=== PATIENT | female | born 1990 | race African-American/Black ===

== ENCOUNTER 2016-12-21 17:10 | Inpatient (IN) | payer MEDICAID ==
[2016-12-21 17:52] LABS: APPEARANCE,URINE SLIGHTLY-CLOUDY; BILIRUBIN,URINE NEGATIVE (NEGATIVE); GLUCOSE, URINE NEGATIVE (NEGATIVE); KETONES,URINE NEGATIVE (NEGATIVE); LEUKOCYTE ESTERASE,URINE MODERATE (NEGATIVE); NITRITE,URINE POSITIVE (NEGATIVE); PROTEIN,URINE NEGATIVE (NEGATIVE); URINE SPECIFIC GRAVITY 1.009; UROBILINOGEN,URINE NEGATIVE mg/dL (<2.0)
[2016-12-21 18:08] LABS: URINE BARBITURATES SCREEN NEGATIVE; URINE METHADONE SCREEN NEGATIVE; URINE OPIATES LOW NEGATIVE; URINE PHENCYCLIDINE SCREEN NEGATIVE
[2016-12-21] MEDS ORDERED: OXYTOCIN 10 UNIT/ML VIAL ONE (19:32)
[2016-12-21] MEDS ORDERED: KETOROLAC TROMETHAMINE INJ/PF 30 MG/1 ML SDV ONE (19:32)
[2016-12-21] MEDS ORDERED: EPHEDRINE SULFATE INJ 50 MG/1 ML AMPULE ONE (19:33)
[2016-12-21] MEDS ORDERED: MIDAZOLAM 2 MG/2 ML INJ ONE (19:33)
[2016-12-21] MEDS ORDERED: ONDANSETRON HCL INJ/PF 4 MG/2 ML SDV ONE (19:33)
[2016-12-21] MEDS ORDERED: OXYTOCIN/NORMAL SALINE 20 UNIT/1,000 ML RTUINJ ONE (19:33)
[2016-12-21] MEDS ORDERED: ACETAMINOPHEN 100 ML IV ONE (19:33)
[2016-12-21] MEDS ORDERED: FENTANYL CITRATE INJ/PF 100 MCG/2 ML AMPUL ONE (19:33)
[2016-12-21] MEDS ORDERED: FENTANYL CITRATE INJ/PF 250 MCG/5 ML AMPULE ONE (19:33)
[2016-12-21] MEDS ORDERED: CITRIC ACID/SODIUM CITRATE ORAL SOLN 15 ML UDCUP PO ONE (19:35)
[2016-12-21] MEDS ORDERED: CEFAZOLIN 2 GM/D5W RTU 2 GM/50 ML RTUPB IV ONE (19:36)
[2016-12-21] MEDS ORDERED: CITRIC ACID/SODIUM CITRATE ORAL SOLN 15 ML UDCUP ONE (19:36)
[2016-12-21 19:44] LABS: ABSOLUTE EOSINOPHILS # (AUTO) 0.1 10^3/uL (0.0-0.6); ABSOLUTE LYMPHOCYTES (AUTO) 1.4 10^3/uL (0.5-4.7); ABSOLUTE MONOCYTES (AUTO) 0.8 10^3/uL (0.1-1.4); ABSOLUTE NEUT (AUTO) 8.2 10^3/uL (1.7-8.2); BASOPHILS % (AUTO) 0.3 % (0-2); EOSINOPHILS % (AUTO) 0.6 % (0-6); HEMATOCRIT 35.3 % (36.0-47.0); HEMOGLOBIN 11.8 g/dL (12.0-15.5); HGB HCT DIFFERENCE 0.1; LYMPHOCYTES % (AUTO) 13.2 % (13-45); MEAN CORPUSCULAR HEMOGLOBIN 29.8 pg (27.0-33.4); MEAN CORPUSCULAR HGB CONC 33.5 g/dL (32.0-36.0); MEAN CORPUSCULAR VOLUME 89 fl (80-97); MONOCYTES % (AUTO) 7.3 % (3-13); RED BLOOD COUNT 3.96 10^6/uL (3.72-5.28); RED CELL DISTRIBUTION WIDTH 12.5 % (11.5-14.0); SEGMENTED NEUTROPHILS % (AUTO) 78.6 % (42-78); WHITE BLOOD COUNT 10.4 10^3/uL (4.0-10.5)
[2016-12-21] MEDS ORDERED: CEFAZOLIN 2 GM/D5W RTU 50 ML IV SCH (19:45)
[2016-12-21] MEDS ORDERED: HYDROMORPHONE HCL INJ/PF 2 MG/ML AMPULE IV PRN (20:00)
[2016-12-21] MEDS ORDERED: ACETAMINOPHEN 100 ML IV PRN (20:00)
[2016-12-21] MEDS ORDERED: SIMETHICONE 80 MG TAB.CHEW PO PRN (20:00)
[2016-12-21] MEDS ORDERED: OXYCODONE-ACETAMINOPHEN 5-325 MG TABLET PO PRN (20:00)
[2016-12-21] MEDS ORDERED: RINGERS SOLUTION,LACTATED 1,000 ML IV PRN (20:00)
[2016-12-21] MEDS ORDERED: OXYTOCIN/NORMAL SALINE 1,000 ML IV PRN (20:00)
[2016-12-21] MEDS ORDERED: PROMETHAZINE HCL INJ 25 MG/1 ML VIAL IV PRN (20:00)
[2016-12-21] MEDS ORDERED: ACETAMINOPHEN 325 MG TABLET PO PRN (20:00)
[2016-12-21] MEDS ORDERED: MEASLES,MUMPS&RUBELLA VACC/PF 0.5 ML VIAL SUBCUT PRN (20:00)
[2016-12-21] MEDS ORDERED: DIPH/PERTUSS(ACELL)/TETANUS VAC/PF 0.5 ML SYR (>=10YO) IM PRN (20:00)
--- NOTE | 2016-12-21 21:33 | OPERATIVE REPORT E ---
Operative Report NAME: MAXIMUS MOMIN : 1990 AGE: 26Y DATE OF SURGERY: 12/21/2016 ROOM: LR200 PREOPERATIVE DIAGNOSIS: POSTOPERATIVE DIAGNOSIS: OPERATION: SURGEON: NELL KAN M.D. ANESTHESIA: TISSUE REMOVED OR ALTERED: PROCEDURE: Dr. Arcos, the crystal calibrator, while in the middle of doing a section, called me because the tip of the dome of the bladder appears to be very adherent to the midline. The patient had a previous section in the past. The bladder appears to be in the way to deliver the baby from the uterus. Because of this, the dome of the bladder was dissected further as far as possible towards the superior part to subsequently serially clamp, cut and suture ligate it with 0-Vicryl. About a 2 cm length of the tip of the bladder was dissected down. Four Radha clamps were used and the proximal bladder side of the clamp was then suture ligated with 0-Vicryl. This allowed to pull down the bladder out of the way of the path the baby. Following this, Dr. Arcos then proceeded to make an incision through the uterus and deliver the baby. At this point, I left the procedure and early childhood assistant nurse took over. The plan is to leave the Mckeon catheter for about 7-10 days. A cystogram may need to be taken just prior to the patient's discharge from the hospital to make sure there is no leak. DICTATING PHYSICIAN: NELL KAN M.D. [id number] PHY#: [id number] ID: [id number] JOB#: [id number] ACCT: [id number] cc:NELL KAN M.D. >
--- NOTE | 2016-12-21 22:28 | Operative Report ---
Operative Report DATE OF SURGERY: 12/21/16 PREOPERATIVE DIAGNOSIS: Repeat in labor POSTOPERATIVE DIAGNOSIS: Same with the addition of very dense pelvic adhesions OPERATION: Repeat with a vertical incision on the uterus in the contractile portion of the myometrium SURGEON: AIDA DUMONT - Dr. Obrien ANESTHESIA: Spinal TISSUE REMOVED OR ALTERED: Placenta COMPLICATIONS: None ESTIMATED BLOOD LOSS: 500 cc INTRAOPERATIVE FINDINGS: Viable female weight 5 lbs. 14 oz. crying at delivery. Also the uterus was adhesed to the back of the rectus muscles. There was a large scar which formed a shelf at the previous uterine incision. The bladder appeared to be adhesed up over the previous uterine incision. PROCEDURE: Patient was taken to the OR and placed in the supine position after her spinal. Her abdomen was prepared and draped in sterile fashion her bladder was drained with a Mckeon catheter. A low transverse incision was made excising her old scar. The incision was carried down the level of the fascia which was nicked in the midline. Fascial incision was extended bilaterally using curved Luque scissors. I next attempted to separate the fascia was off the rectus muscles however there was very dense scar in this region. In order to get room to deliver the baby I performed a Maylard incision the rectus muscles bilaterally. Peritoneum was entered with fingertip superior to the bladder. The uterus was densely adhesed to the rectus muscles. The bladder appeared to be adherent over the previous uterine scar. And the uterine scar formed thick shelf giving a very odd appearance to the lower uterine segment. There was also very little room laterally. I asked the general surgeon Dr. Camara to assist me with exposure. He was able to take the bladder off the lower uterine segment using sharp dissection. Several of the fibers he would clamp and tie off with Vicryl suture. Not appear that we entered the bladder. Dr. Camara did ask that we leave bladder drainage for 10 days just as a precaution. I then made the uterine incision above the area of adherent bladder. The uterine incision was extended superiorly and inferiorly because there was no room laterally. This incision was through the contractile portion of the myometrium. The baby's head was then delivered with some fundal pressure and the baby was delivered completely. The cord was doubly clamped and cut and the was passed off to the title vehicle service attendant. Next while retracting the bladder downward the uterine incision was closed with interrupted sutures of 0 chromic. A second layer of 0 chromic was used to imbricate the first. Interceed was placed over the incision after the closure was completed. Stasis was quite good. There is no access to the upper abdomen to view the tubes and ovaries. Next I began closing the Maylard incision. The peritoneum beneath the rectus muscle was brought together bilaterally with a running 2-0 chromic suture. The rectus muscles were inspected for bleeding and hemostasis was assured. The fascia above the rectus muscle was then closed with a running layer of 0 Vicryl in 2 segments. The wound was then irrigated and suctioned free of fluid. The subcu layer was brought together with a 2-0 plain gut stitch and the skin was closed with a subcuticular 4-0 undyed Vicryl stitch. Wound was dressed and the patient was taken to the PACU in stable condition.
--- NOTE | 2016-12-22 00:05 | Admission Physical ---
Datetime Report Generated by CPN: 12/22/2016 00:05 CURRENT ADMISSION Chief Complaint: Uterine Contractions Indication for Induction: Not Applicable Admit Plan: Admit to Unit; Initiate Section Protocol ALLERGIES Medication Allergies: Yes Medication Allergies: Penicillins (10/26/2014) Latex: No Latex Allergies Food Allergies: no Environmental Allergies: no OBSTETRICAL HISTORY EDC: 12/27/2016 00:00 : 3 Para: 2 Term: 1 : 1 SAB: 0 IAB: 0 Ectopic: 0 Livin Cesareans: 1 VBACs: 0 Multiple Births: 0 Gestational Diabetes: No Rh Sensitization: No Incompetent Cervix: No AMRIT: No Infertility: No ART Treatment: No Uterine Anomaly: No IUGR: Unknown Hx Previous C/S: Yes Macrosomia: No Hx Loss/Stillborn: No PIH: No Hx : No Placenta Previa/Abruption: No Depression/PP Depression: No PTL/PROM: Yes Post Hemorrhage: No Current Procedures: Ultrasound SEE RECORDS Alcohol: No Marijuana : Yes Marijuana Frequency: 3 - 5 Times Per Week Years Used: 2 weeks Last Used: 12/07/2016 00:00 Previous Treatment: None Cocaine: No Other Illicit Drugs: No Cigarettes: Never Smoker. [id number] MEDICAL HISTORY Diabetes: No Blood Transfusion: No Pulmonary Disease (Asthma, TB): No Breast Disease: No Hypertension: No Salon Coordinator Surgery: No Heart Disease: No Hosp/Surgery: No Autoimmune Disorder: No Anesthetic Complications: No Kidney Disease: Yes Abnormal Pap Smear: No Neuro/Epilepsy: No Psychiatric Disorders: No Other Medical Diseases: No Hepatitis/Liver Disease: No Significant Family History: No Varicosities/Phlebitis: No Trauma/Violence : No Thyroid Dysfunction: No INFECTIOUS HISTORY Gonorrhea: No Genital Herpes: No Chlamydia: No Tuberculosis: No Syphilis: No Hepatitis: No HIV/AIDS Exposure: No Rash or Viral Illness: No HPV: No PHYSICAL EXAM General: Normal HEENT: Normal Neurologic: Normal Thyroid: Normal Heart: Normal Lungs: Normal Breast: Deferred Back: Normal Abdomen: Normal Genitourinary Exam: Normal Extremities: Normal DTRs: Normal Pelvic Type: Adequate Vital Signs: Reviewed VAGINAL EXAM Dilatation: 4 Effacement: 90 MEMBRANES Pooling: Negative Membranes: Intact FETUS A EGA: 39.1 Monitoring: External US FHR- Baseline: 120 Variability: Moderate 6-25bpm Decelerations: None FHR Category: Category I Presentation: Vertex Admit Comment: Admit for a C section PLANS FOR LABOR AND DELIVERY Labor and Delivery: None Pain Management: Spinal Feeding Preference: Breast Benefit of Breast Feed Discussed: Yes Circumcision: Yes INFORMED CONSENT Signature: with User ID: [email or web address]
--- NOTE | 2016-12-22 01:32 | Delivery Summary ---
Del Sum A-C Datetime Report Generated by CPN: 12/22/2016 01:31 DELIVERY PERSONNEL DELIVERY PERSONNEL: [phone] Delivery Doctor:: Phillip Arcos MD Anesthesiologist:: Megha Dougherty MD DEVIL DOG:: Drew Espinal CRNA Labor and Delivery Nurse:: Kirti Jiménez RN Mixed Crop Farmer:: Jeffrey Vyas MD Nursery Nurse:: Tammy Irving RN Case Assistant/PAEDIATRIC SURGEON: ST Denise Case Assistant/PAEDIATRIC SURGEON: ST Slick (Annotations: Data stored by [facility] on behalf of user) MATERNAL INFORMATION Delivery Anesthesia: Spinal Medications After Delivery: Pitocin Bolus-Please Comment Meds After Delivery Comment: 2 bags of 20 units/1000ml NSS Estimated Blood Loss (ml): 600 Maternal Complications: None LABOR SUMMARY EDC: 12/27/2016 00:00 No. Babies in Womb: 1 Attempted: No LABOR INFORMATION Reason for Induction: Not Applicable Onset of Labor: 12/21/2016 17:33 Oxytocin: N/A Group B Beta Strep: unknown Antibiotics # of Doses: 1 Antibiotics Time of Last Dose: 1952 Name of Antibiotic Given: Ancef Steroids Given: None Reason Steroids Not Administered: Not Applicable STAGES OF LABOR Stage 3 hr: 0 Stage 3 min: 1 Total Time in Labor hr: 3 Total Time in Labor min: 31 CSECTION DELIVERY Primary Indication: Other Other Primary Indication: repeat CSection Urgency: Non-Scheduled CSection Incidence: Repeat Labor: N/A Elective: Nonelective CSection Incision: Lower Uterine Transverse BABY A INFORMATION Infant Delivery Date/Time: 12/21/2016 21:03 Method of Delivery: Born in Route : No : N/A Forceps: N/A Vacuum Extraction: N/A Shoulder Dystocia : No PRESENTATION/POSITION BABY A Presentation: Cephalic Cephalic Presentation: Vertex Breech Presentation: N/A PLACENTA INFORMATION BABY A Placenta Delivery Time : 12/21/2016 21:04 Placenta Method of Delivery: Manual Removal Placenta Status: Delivered SCORES BABY A Heart Rate 1 min: >100 bpm Resp Effort 1 min: Good Cry Reflex Irritability 1 min: Cough or Sneeze or Pulls Away Muscle Tone 1 min: Active Motion Color 1 min: Blue/Pale Resuscitation Effort 1 min: Tactile Stimulation SCORE 1 MIN: 8 Heart Rate 5 min: >100 bpm Resp Effort 5 min: Good Cry Reflex Irritability 5 min: Cough or Sneeze or Pulls Away Muscle Tone 5 min: Active Motion Color 5 min: Body [place], Extremities Blue Resuscitation Effort 5 min: N/A SCORE 5 MIN: 9 INFORMATION BABY A Gestational Age at Delivery: 39.1 Gestational Status: Full Term- 39- 40.6 Weeks Outcome : Liveborn Condition : Stable Infant Sex: Male WEIGHT/LENGTH BABY A Infant Birthweight (gm): 2670 Infant Weight (lb): 5 Infant Weight (oz): 14 Length (in): 19.00 Infant Length (cm): 48.26 CORD INFORMATION BABY A No. Cord Vessels: 3 Nuchal Cord : N/A Cord Blood Taken: Yes-For Storage (Mom's Blood type +) Suction: None ASSESSMENT BABY A Infant Complications: None Physical Findings at Delivery: Within Normal Limits Skin to Skin: Yes Skin to Skin Time (min): 60
[2016-12-22] MEDS: KETOROLAC TROMETHAMINE INJ/PF 30 MG/1 ML SDV IV SCH ×3 (01:38→13:16)
[2016-12-22] MEDS: OXYCODONE-ACETAMINOPHEN 5-325 MG TABLET PO PRN ×4 (03:26→20:26)
[2016-12-22 07:00] LABS: HEMATOCRIT 26.5 % (36.0-47.0); HGB HCT DIFFERENCE -0.4; MEAN CORPUSCULAR HEMOGLOBIN 29.8 pg (27.0-33.4); MEAN CORPUSCULAR VOLUME 90 fl (80-97); RED BLOOD COUNT 2.94 10^6/uL (3.72-5.28); RED CELL DISTRIBUTION WIDTH 12.4 % (11.5-14.0); WHITE BLOOD COUNT 11.4 10^3/uL (4.0-10.5)
[2016-12-22 07:16] LABS: HEMOGLOBIN 8.7 g/dL (12.0-15.5)
[2016-12-22] MEDS: CEPHALEXIN 250 MG CAPSULE PO SCH ×2 (09:15→21:39)
[2016-12-22] MEDS: DOCUSATE SODIUM 100 MG CAPSULE PO SCH ×2 (09:15→17:13)
[2016-12-22] MEDS: PRENATAL VITAMIN W-O CA NO5/FE FUMARATE/FA CAPSULE PO SCH (09:15)
--- NOTE | 2016-12-22 09:38 | PDOC PROGRESS REPORT ---
Subjective-OB Subjective: Post Delivery Day: 26 year old. Denies any needs at this time Doing well, no c/o, male infant, , pain under control, scant bleeding, family at BS Physical Exam (OB) Vital Signs: Temp Pulse Resp BP Pulse Ox 97.8 F 77 16 127/70 H 100 12/22/16 08:00 12/22/16 08:00 12/22/16 08:00 12/22/16 08:00 12/22/16 08:00 Intake & Output 12/21/16 12/22/16 12/23/16 06:59 06:59 06:59 Output Total 750 Balance -750 Weight 84.75 kg - Dressing Removed: No Incision: Well Approximated Closure Type: op site - Lochia Lochia Amount: Scant < 10 ml Lochia Color: Rubra/Red - Abdomen Description: Tender, Soft, Round Hernia Present: No Fundal Description: Firm, Midline Fundal Height: u/u - u/2 Objective-Diagnostic Laboratory: 12/22/16 06:24 12/21/16 12/21/16 12/21/16 17:23 19:30 19:30 WBC 10.4 RBC 3.96 Hgb 11.8 L Hct 35.3 L MCV 89 MCH 29.8 MCHC 33.5 RDW 12.5 Plt Count 207 Seg Neutrophils % 78.6 H Lymphocytes % 13.2 Monocytes % 7.3 Eosinophils % 0.6 Basophils % 0.3 Absolute Neutrophils 8.2 Absolute Lymphocytes 1.4 Absolute Monocytes 0.8 Absolute Eosinophils 0.1 Absolute Basophils 0.0 Urine Color YELLOW Urine Appearance SLIGHTLY-CLOUDY Urine pH 6.0 Ur Specific [place] 1.009 Urine Protein NEGATIVE Urine Glucose (UA) NEGATIVE Urine Ketones NEGATIVE Urine Blood NEGATIVE Urine Nitrite POSITIVE H Ur Leukocyte Esterase MODERATE H Blood Type A POSITIVE Antibody Screen NEGATIVE 12/22/16 06:24 WBC 11.4 H RBC 2.94 L Hgb 8.7 L D Hct 26.5 L MCV 90 MCH 29.8 MCHC 33.0 RDW 12.4 Plt Count 172 Seg Neutrophils % Lymphocytes % Monocytes % Eosinophils % Basophils % Absolute Neutrophils Absolute Lymphocytes Absolute Monocytes Absolute Eosinophils Absolute Basophils Urine Color Urine Appearance Urine pH Ur Specific [place] Urine Protein Urine Glucose (UA) Urine Ketones Urine Blood Urine Nitrite Ur Leukocyte Esterase Blood Type Antibody Screen Assessment and Plan(PN) - Assessment and Plan (1) delivery delivered Is this a current diagnosis for this admission?: Yes (2) Anemia Qualifiers: Anemia type: iron deficiency Is this a current diagnosis for this admission?: Yes - Time Spent with Patient Time with patient: Less than 15 minutes Medications reviewed and adjusted accordingly: Yes - Disposition Anticipated Discharge: Home Within: within 48 hours - yoder draining, will remain in place for 10 days, pt aware
[2016-12-22] MEDS: IBUPROFEN 800 MG TABLET PO SCH (23:54)
[2016-12-23] MEDS: IBUPROFEN 800 MG TABLET PO SCH ×3 (05:25→18:37)
[2016-12-23] MEDS: DOCUSATE SODIUM 100 MG CAPSULE PO SCH ×2 (10:14→18:37)
[2016-12-23] MEDS: PRENATAL VITAMIN W-O CA NO5/FE FUMARATE/FA CAPSULE PO SCH (10:15)
[2016-12-23] MEDS: CEPHALEXIN 250 MG CAPSULE PO SCH (10:15)
--- NOTE | 2016-12-23 12:22 | PDOC DISCHARGE SUMMARY ---
Final Diagnosis Discharge Date: 12/23/16 - Final Diagnosis (1) Anemia Is this a current diagnosis for this admission?: Yes (2) delivery delivered Is this a current diagnosis for this admission?: Yes Discharge Data - Discharge Medication Home Medications: No Home Medications 12/21/16 Reason(s) for Admission: Ceasarean Section-Repeat Intrapartum Procedure(s): : Low Cervical, Transverse - Diagnosis Test Laboratory: Temp Pulse Resp BP Pulse Ox 98.1 F 84 16 120/80 100 12/23/16 11:18 12/23/16 11:18 12/23/16 11:18 12/23/16 11:18 12/23/16 08:01 12/21/16 12/21/16 12/22/16 17:23 19:30 06:24 RBC 3.96 2.94 L Hgb 11.8 L 8.7 L D Hct 35.3 L 26.5 L Urine Opiates Screen NEGATIVE - Discharge information/Instructions Discharge Activity: Activity As Tolerated Discharge Diet: Regular Disposition: HOME, SELF-CARE Follow up with: [facility] in: 1 - follow up yoder in place and to remain for 10 [address] op per Dr[address] Arcos
--- NOTE | 2016-12-23 12:27 | PDOC PROGRESS REPORT ---
Subjective-OB Subjective: Post Delivery Day: 26 year old. Denies any needs at this time pt sitting up abdominal binding in place ff@u-2 mild lochia yoder in place and will remain x 10 days +flatus, -bm ambulating well continue iron bid with colace reviewed with pt follow up in clinic by friday leg bag prior to d/c Physical Exam (OB) Vital Signs: Temp Pulse Resp BP Pulse Ox 98.1 F 84 16 120/80 100 12/23/16 11:18 12/23/16 11:18 12/23/16 11:18 12/23/16 11:18 12/23/16 08:01 Intake & Output 12/22/16 12/23/16 12/24/16 06:59 06:59 06:59 Intake Total 1000 Output Total 750 1100 500 Balance -750 -100 -500 Weight 84.75 kg - Dressing Removed: No - opsite dressing in place Incision: Dressing Closure Type: Sutures - Lochia Lochia Amount: Scant < 10 ml Lochia Color: Rubra/Red - Abdomen Description: Tender, Soft Hernia Present: No Fundal Description: Firm, Midline Fundal Height: u/u - u/2 Objective-Diagnostic Laboratory: 12/22/16 06:24 Assessment and Plan(PN) - Assessment and Plan (1) Anemia Qualifiers: Anemia type: iron deficiency Is this a current diagnosis for this admission?: Yes (2) delivery delivered Is this a current diagnosis for this admission?: Yes - Time Spent with Patient Medications reviewed and adjusted accordingly: Yes - Disposition Anticipated Discharge: Home
[2016-12-23 17:20] VITALS: BP 120/80
== END 2016-12-23 20:50 | disposition home or self-care (01) | DRG 766 ==
LOC: LC 17:10 → LR 19:08 → 2S 23:50
PROVIDERS: ADMIT Obstetrics & Gynecology; ATTEND Obstetrics & Gynecology
PROC: 10D00Z1 Extraction of Products of Conception, Low, Open Approach (ICD-10-PCS; principal; 2016-12-21)
PROC: 0UN90ZZ Release Uterus, Open Approach (ICD-10-PCS; 2016-12-21)
PROC: 0TNB0ZZ Release Bladder, Open Approach (ICD-10-PCS; 2016-12-21)
PROC: 4A1HXCZ Monitoring of Products of Conception, Cardiac Rate, External Approach (ICD-10-PCS; 2016-12-21)
DX: O34.211 Maternal care for low transverse scar from previous cesarean delivery (principal); O99.89 Other specified diseases and conditions complicating pregnancy, childbirth and the puerperium; N73.6 Female pelvic peritoneal adhesions (postinfective); O99.02 Anemia complicating childbirth; D50.9 Iron deficiency anemia, unspecified; Z88.0 Allergy status to penicillin; Z3A.39 39 weeks gestation of pregnancy; Z37.0 Single live birth
CPT/HCPCS: 1961; 36415; 80307; 81005; 85025; 85027; 86592; 86850; 86900; 86901; 94799; C1765; J0131; J0690; J1170; J1885; J2250; J2405; J2590; J3010; J3490

== ENCOUNTER 2017-12-06 22:39 | Emergency (ER) | payer SELFPAY ==
[2017-12-07] MEDS ORDERED: NORMAL SALINE 1000 ML 1,000 ML IV ONE (00:44)
[2017-12-07] MEDS ORDERED: METOCLOPRAMIDE HCL INJ/PF 10 MG/2 ML SDV IV ONE (00:44)
[2017-12-07] MEDS ORDERED: KETOROLAC TROMETHAMINE INJ/PF 30 MG/1 ML SDV IV ONE (00:44)
--- NOTE | 2017-12-07 00:47 | ER Document Report ---
ED General - General Chief Complaint: Eye Problem Stated Complaint: EYE PAIN Notes: Patient is a 27-year-old female without chronic medical problems, does not take any daily medications who presents with 2 weeks of a progressively worsening bifrontal, bitemporal headache and several days of blurred vision. Patient reports the headache is a throbbing, constant, aching pain. Lights, sounds and activity worsen the headache and eye pain. Nothing improves her symptoms. She is uncertain of whether or not she has had a similar headache in the past but does note a long-standing history of headaches. She states that the blurring of her vision occurred over the last 3 days and has overall been unchanged since onset. She has not seen an patients transporter or an pressure steamer tender within the past decade and notes that there is a long family history of vision difficulties. She denies any fever, neck pain, confusion, focal weakness or numbness. She has not seen her general doctor regarding today's concerns. TRAVEL OUTSIDE OF THE [place] IN LAST 30 DAYS: No - Related Data Allergies/Adverse Reactions: Penicillins Allergy (Verified 10/26/14 23:43) Past Medical History - General Information source: Patient - Social History Smoking Status: Never Smoker Frequency of alcohol use: None Drug Abuse: None Lives with: Spouse/Significant other Family History: Reviewed & Not Pertinent Patient has suicidal ideation: No Patient has homicidal ideation: No Renal/ Medical History: Denies: Hx Peritoneal Dialysis Past Surgical History: Reports: Hx Section - Immunizations Hx Diphtheria, Pertussis, Tetanus Vaccination: Yes Review of Systems - Review of Systems Notes: Constitutional: Negative for fever. HENT: Negative for sore throat. Eyes: Positive for blurred vision Cardiovascular: Negative for chest pain. Respiratory: Negative for shortness of breath. Gastrointestinal: Negative for abdominal pain, vomiting or diarrhea. Genitourinary: Negative for dysuria. Musculoskeletal: Negative for back pain. Skin: Negative for rash. Neurological: Positive for headache 10 point ROS negative except as marked above and in HPI. Physical Exam - Vital signs Vitals: Temp Pulse Resp BP Pulse Ox 99 F 71 18 131/81 H 98 12/06/17 22:47 12/06/17 22:47 12/06/17 22:47 12/06/17 22:47 12/06/17 22:47 Interpretation: Normal Notes: PHYSICAL EXAMINATION: GENERAL: Well-appearing, well-nourished and in no acute distress. HEAD: Atraumatic, normocephalic. EYES: Pupils equal round and reactive to light, extraocular movements intact, sclera anicteric, conjunctiva are normal. ENT: nares patent, oropharynx clear without exudates. Moist mucous membranes. NECK: Normal range of motion, supple without lymphadenopathy LUNGS: Breath sounds clear to auscultation bilaterally and equal. No wheezes rales or rhonchi. HEART: Regular rate and rhythm without murmurs ABDOMEN: Soft, nontender, normoactive bowel sounds. No guarding, no rebound. No masses appreciated. EXTREMITIES: Normal range of motion, no pitting or edema. No cyanosis. NEUROLOGICAL: Face symmetric. Tongue protrudes midline. Extraocular motions intact. Pupils are 2 mm and equally reactive. Normal speech, normal gait. 5 out of 5 strength in both the distal and proximal upper and lower extremities bilaterally. Sensation is grossly intact throughout. Finger to nose testing normal. Pronator drift normal. PSYCH: Normal mood, normal affect. SKIN: Warm, Dry, normal turgor, no rashes or lesions noted. - HEENT Visual acuity- Right eye: 20/50 Visual acuity- Left eye: 20/40 Visual acuity- Both eyes: 20/50 Corrective lenses worn: No Course - Re-evaluation Re-evalutation: 12/07/17 00:46 Presentation of a headache that appears to be most consistent with tension versus migrainous type headache. Headache was not maximal in onset, patient has no focal neurologic deficits, no nuchal rigidity, vital signs within normal limits, no papilledema, and patient is overall well in appearance. Based on clinical history and examination I do not suspect an acute subarachnoid hemorrhage, dural venous sinus thrombosis, acute meningitis, or intercranial mass. Given my low clinical suspicion for any acute life-threatening etiology, I do not feel advanced neuro imaging or laboratory testing is indicated at this time. Will proceed with headache cocktail and reassess. 12/07/17 02:28 Patient is a complete resolution of her headache. Some improvement of the blurring of her vision. Continues have mild pelvic pain on palpation of the frontal sinuses bilaterally. Will start her on clindamycin for possible associated sinusitis given the duration of her symptoms. Have also expressed that the patient that she needs to return immediately if she has recurrence of her headache, worsening of her blurring of vision, neurologic deficits, fever, or any other symptoms that are of concern to her. I have also emphasized the importance of following up with optometry as well as her general doctor. At this time will discharge with return precautions and follow-up recommendations. Verbal discharge instructions given a the bedside and opportunity for questions given. Medication warnings reviewed. Patient is in agreement with this plan and has verbalized understanding of return precautions and the need for primary care follow-up in the next 24-72 hours. - Vital Signs Vital signs: Temp Pulse Resp BP Pulse Ox 99 F 71 18 131/81 H 98 12/06/17 22:47 12/06/17 22:47 12/06/17 22:47 12/06/17 22:47 12/06/17 22:47 Discharge - Discharge Clinical Impression: Blurry vision Headache Qualifiers: Headache type: unspecified Headache chronicity pattern: acute headache Intractability: not intractable Qualified Code(s): R51 - Headache Sinusitis Qualifiers: Sinusitis location: frontal Chronicity: acute Recurrence: non-recurrent Qualified Code(s): J01.10 - Acute frontal sinusitis, unspecified Condition: Good Disposition: HOME, SELF-CARE Additional Instructions: You were seen today for a migraine headache. Please follow-up with your primary care doctor regarding today's ED visit. He should also follow-up with her eye doctor regarding your blurring of vision. Return to emergency department immediately if you develop a headache that gets to its maximum severity within 20 minutes of onset, you pass out, you develop weakness, numbness, persistent changes in your vision, become unable to keep any fluids down for more than 12 hours, or develop a fever greater than 100.4 degrees Fahrenheit. If you develop a similar migraine headache in the future I recommend that you immediately take 600 mg of ibuprofen and 50 mg of Benadryl and go to sleep as quickly as possible. This can often prevent your migraine headache from becoming severe. Prescriptions: Clindamycin HCl 300 mg PO TID #30 capsule
[2017-12-07] MEDS ORDERED: HALOPERIDOL LACTATE INJ 5 MG/1 ML VIAL IV ONE (01:59)
[2017-12-07] MEDS ORDERED: CLINDAMYCIN HCL 150 MG CAPSULE PO ONE (02:27)
[2017-12-07 03:21] VITALS: BP 118/81
== END 2017-12-07 03:20 | disposition home or self-care (01) ==
LOC: ER 22:39
DX: J01.10 Acute frontal sinusitis, unspecified (principal); H53.8 Other visual disturbances; R51 Headache; H57.10 Ocular pain, unspecified eye; Z88.0 Allergy status to penicillin
CPT/HCPCS: 99283; 96361; 96374; 96375; J1885; J2765; J7030

== ENCOUNTER 2018-02-18 12:08 | Emergency (ER) | payer SELFPAY ==
[2018-02-18] MEDS ORDERED: TETRACAINE HCL 0.5% OPH SOLN 2 ML OD ONE (15:10)
[2018-02-18] MEDS ORDERED: TETRACAINE HCL 0.5% OPH SOLN 2 ML ONE (15:14)
--- NOTE | 2018-02-18 15:49 | ER Document Report ---
ED General - General Chief Complaint: Redness of Eye Stated Complaint: EYE REDNESS Time Seen by Provider: 02/18/18 14:51 TRAVEL OUTSIDE OF THE [place] IN LAST 30 DAYS: No - HPI Notes: 28-year-old female woke up this morning with pain and redness to her right eye. She reports blurry vision from both eyes and a mild diffuse frontal headache. She denies any eye injury. She does not wear glasses or contacts. Has not recently seen an camp program director or jinriksha driver. She has pain with movement of her eye with sharp stabbing pain. Denies any foreign body sensation. No crusting. She has been rubbing eye frequently and using Visine without improvement. Denies any double vision. - Related Data Allergies/Adverse Reactions: Penicillins Allergy (Verified 10/26/14 23:43) Past Medical History - Social History Smoking Status: Never Smoker Frequency of alcohol use: None Drug Abuse: None Family History: Reviewed & Not Pertinent Patient has suicidal ideation: No Patient has homicidal ideation: No Renal/ Medical History: Denies: Hx Peritoneal Dialysis Past Surgical History: Reports: Hx Section - Immunizations Hx Diphtheria, Pertussis, Tetanus Vaccination: Yes Review of Systems - Review of Systems Notes: Constitutional: Negative for fever. HENT: Negative for sore throat. Eyes: Positive for blurry vision both eyes, conjunctival injection and pain in right eye. Tearing in bilateral eyes. Cardiovascular: Negative for chest pain. Respiratory: Negative for shortness of breath. Gastrointestinal: Negative for abdominal pain, vomiting or diarrhea. Genitourinary: Negative for dysuria. Musculoskeletal: Negative for back pain. Skin: Negative for rash. Neurological: Positive for headache. Negative focal weakness or numbness. 10 point ROS negative except as marked above and in HPI. Physical Exam - Vital signs Vitals: Temp Pulse Resp BP Pulse Ox 99.4 F 87 14 131/87 H 97 02/18/18 12:12 02/18/18 12:12 02/18/18 12:12 02/18/18 12:12 02/18/18 12:12 - Notes Notes: PHYSICAL EXAMINATION: GENERAL: Well-appearing, well-nourished and in no acute distress. HEAD: Atraumatic, normocephalic. EYES: Pupils equal round and reactive to light, extraocular movements intact, right conjunctive injected. Large area of fluorescein uptake to right lower cornea around 6 o'clock position. Intraocular pressure 21 in the right eye. Left eye normal. No periorbital edema, erythema, or warmth. She has mild ecchymosis to right supraorbital region. ENT: nares patent, oropharynx clear without exudates. Moist mucous membranes. Mild frontal tenderness bilaterally. NECK: Normal range of motion, supple without lymphadenopathy LUNGS: Breath sounds clear to auscultation bilaterally and equal. No wheezes rales or rhonchi. HEART: Regular rate and rhythm, no chest wall tenderness ABDOMEN: Soft, nontender, normoactive bowel sounds. No guarding, no rebound. No masses appreciated. EXTREMITIES: Normal range of motion, no pitting or edema. No cyanosis. NEUROLOGICAL: Cranial nerves grossly intact. Normal speech, normal gait. Normal sensory and motor exams. PSYCH: Normal mood, normal affect. SKIN: Warm, Dry, normal turgor, no rashes or lesions noted. - HEENT Visual acuity- Right eye: 20/40 Visual acuity- Left eye: 20/70 Visual acuity- Both eyes: 20/25 Corrective lenses worn: No Course - Re-evaluation Re-evalutation: 02/18/18 15:48 Fluorescein exam consistent with right corneal abrasion. Will treat with erythromycin. Pain improved with tetracaine. - Vital Signs Vital signs: Temp Pulse Resp BP Pulse Ox 99.4 F 87 14 131/87 H 97 02/18/18 12:12 02/18/18 12:12 02/18/18 12:12 02/18/18 12:12 02/18/18 12:12 Discharge - Discharge Clinical Impression: Corneal abrasion Qualifiers: Encounter type: initial encounter Laterality: right Qualified Code(s): S05.01XA - Injury of conjunctiva and corneal abrasion without foreign body, right eye, initial encounter Condition: Good Disposition: HOME, SELF-CARE Instructions: Corneal Abrasion ([facility]), Eyedrop Use ([facility]) Additional Instructions: Follow-up with jinriksha driver within 1-2 days for evaluation and to ensure improvement. Return for any worsening or concerning symptoms such as worsening pain, blurry vision, crusting, fever. Prescriptions: Erythromycin Base [Erythromycin Oph 1 gm Oint Ud] 1 applic OP QID 7 Days #1 tube Referrals: CARY WAGONER DO [ACTIVE STAFF] - Follow up tomorrow
[2018-02-18 16:17] VITALS: BP 124/82
== END 2018-02-18 16:21 | disposition home or self-care (01) ==
LOC: ER 12:08
DX: S05.01XA Injury of conjunctiva and corneal abrasion without foreign body, right eye, initial encounter (principal); H57.11 Ocular pain, right eye; H53.8 Other visual disturbances; R51 Headache; X58.XXXA Exposure to other specified factors, initial encounter
CPT/HCPCS: 99282